=== PATIENT | male | born 1940 | race Caucasian/White ===

== ENCOUNTER 2019-09-05 12:19 | Emergency (ER) | payer MEDICARE, SELFPAY ==
[2019-09-05] VITALS (25 sets, daily range): BP systolic 129–191; BP diastolic 62–92; PULSE 46–76; RESP 18–22; TEMP 36.4–36.8; O2SAT 93–100
[2019-09-05 13:19] LABS: Abs Immature Grans 0.02 k/cumm (0.0-0.09); Absolute Basophil Count 0.02 k/cumm (0.0-0.2); Absolute Eosinophil Count 0.22 k/cumm (0.0-0.7); Absolute Lymphocyte Count 1.79 k/cumm (1.2-3.4); Absolute Monocyte Count 0.82 k/cumm (0.11-0.7); Absolute Neutrophil Count 6.03 k/cumm (1.2-6.7); Basophils % 0.2; Eosinophils % 2.5; HGB 11.8 g/dL (13.5-17.5); Immature Grans % 0.2 %; Lymphocytes % 20.1; Mean Corp. HGB Concentration 33.7 g/dL (32.0-36.0); Mean Corpuscular Hemoglobin 33.3 pg (27.0-33.0); Mean Corpuscular Volume 98.9 fL (80-95); Mean Platelet Volume 10.4 fL (8.0-11.0); Monocytes % 9.2; Neutrophils % 67.8; Platelet Count 273 x1000/uL (130-400); RBC 3.54 m/cumm (4.50-6.00)
[2019-09-05 13:35] LABS: ALT 39 U/L (16-63); AST 21 U/L (15-37); Alkaline Phosphatase 88 U/L (46-116); BUN 46 mg/dL (7-18); Bilirubin, Total 0.5 mg/dL (0.2-1.0); CREATININE 2.46 mg/dL (0.70-1.30); Calcium 8.8 mg/dL (8.5-10.1); Chloride 105 mmol/L (98-107); Estimated GFR 25.64 (mL/min/1.73m2); Glucose 146 mg/dL (74-106); Magnesium 1.3 mg/dL (1.8-2.4); Potassium 5.4 mmol/L (3.5-5.1); Sodium 139 mmol/L (136-145); Total Protein 7.7 g/dL (6.4-8.2)
[2019-09-05 13:36] LABS: Troponin I < 0.05 ng/mL (<0.06)
--- NOTE | 2019-09-05 13:36 | ED.GENADUL_ITS ---
Discharge Plan Disposition Patient Disposition: AGAINST MEDICAL ADVICE Condition: Stable Discharge Details Chief Complaint: GenMedical Clinical Impression: Acute kidney injury superimposed on CKD, Hyperkalemia, Back pain, Shortness of breath Primary Care Provider: Ryley Abebe ED Provider: Ewelina Navarro Home Meds and New Rx's Prescriptions: New amlodipine 5 mg tablet 5 mg PO DAILY Qty: 30 RF: 0 Continued atenolol 100 mg tablet 100 mg PO DAILY Qty: 90 RF: 4 sildenafil 100 mg tablet See Rx Instructions PO ONCE Qty: 7 RF: 4 multivitamin 1 EACH tablet 1 ea PO DAILY RF: 0 prednisone 20 mg tablet 20 mg PO DAILY Qty: 7 RF: 0 allopurinol 100 mg tablet 100 mg PO DAILY Qty: 90 RF: 4 triamcinolone acetonide 0.1 % cream 1 applic Topical BID PRN (Reason: pruritis) Qty: 60 RF: 0 Discontinued hydrochlorothiazide 25 mg tablet 25 mg PO DAILY Qty: 30 RF: 11 lisinopril 30 mg tablet 30 mg PO DAILY Qty: 30 RF: 12 Discharge Instructions Instructions: Acute Kidney Injury (DC), Hyperkalemia (ED), Dyspnea (ED), Back Pain (ED) Additional Instructions: We are stopping your lisinopril and hydrochlorothiazide and starting amlodipine which you should start today or tomorrow. Follow-up with your scheduled appointment with your primary care doctor on Saturday. Drink plenty of fluids and get plenty of rest. Return immediately to the emergency department if you develop any worsening or new concerning symptoms. Discharge Data Discharge Date/Time-TO BE ENTERED AT DEPARTURE: 09/05/19 17:43 Discharge Physician: Ewelina Navarro Medical Decision Making 1230 -- 78-year-old male with a history of hypertension and BPH presents for intermittent dizziness and shortness of breath since yesterday. Denies chest pain. Heart rate 40-60s. Review of previous PCP records note heart rate in the 50s. He is on atenolol. Differential diagnosis includes PE, dissection, ACS, musculoskeletal pain, pneumonia, CHF, electrolyte abnormality, arrhythmia. EKG noted a rate of 71, sinus, frequent PVCs consistent with ventricular bigeminy. T wave inversion in leads III. No acute ST elevation. 1500 -- Labs reviewed and note any significant increase in creatinine from 1.6 to 2.46. Potassium 5.4. Magnesium 1.3. Plan was for CT chest but with acute on chronic kidney injury, chest x-ray ordered which was negative for acute disease. I recommend admission for continued monitoring of creatinine and electrolytes. Patient was initially refusing admission and then agreeable. Patient was evaluated by hospitalist but is now refusing to stay. Despite our efforts, the patient has decided to leave against medical advice. He has a normal mental status and full decisional capacity. The patient understands his condition and the risks of leaving AMA, including BUT NOT LIMITED TO permanent disability, , etc., and has had an opportunity to ask questions about his medical condition. Advised that he stop his lisinopril and hydrochlorothiazide. He was given a prescription for amlodipine. He stated that he has an appointment with his primary care doctor Dr. Abebe on Saturday. He is advised to discuss with him his work-up today and for recheck of his creatinine. Usual and customary return precautions given prior to discharge. Medical Records Medical records reviewed: Yes I reviewed the patient's medical records. Imaging Data Radiologic Study: Radiologist's impression: XR PORTABLE CHEST AP CLINICAL HISTORY: back pain, r/o acute disease TECHNIQUE: COMPARISON: No exams were available for comparison FINDINGS: Portable AP chest at 1500 hours the heart is not enlarged. There is mild pulmonary interstitial prominence, nonspecific, acute versus chronic. No prior films available for comparison. No gross consolidation seen. No pneumothorax or pleural effusion seen on this frontal view. IMPRESSION: Mild pulmonary interstitial prominence, nonspecific. Findings may be acute or chronic. Appropriate follow-up studies suggested. Lab Data Lab results reviewed: Yes I reviewed the patient's lab results. Labs: Laboratory Tests Range/Units 09/05/19 09/05/19 09/05/19 12:35 12:35 12:35 WBC (4.4-10.8) k/cumm 8.90 RBC (4.50-6.00) m/cumm 3.54 L Hgb (13.5-17.5) g/dL 11.8 L Hct (40.0-50.0) % 35.0 L MCV (80-95) fL 98.9 H MCH (27.0-33.0) pg 33.3 H MCHC (32.0-36.0) g/dL 33.7 RDW (11.8-14.1) % 14.0 Plt Count (130-400) x1000/uL 273 MPV (8.0-11.0) fL 10.4 Immature Gran % % 0.2 Neutrophils % 67.8 Lymphocytes % 20.1 Monocytes % 9.2 Eosinophils % 2.5 Basophils % 0.2 Absolute Neutrophils (1.2-6.7) k/cumm 6.03 Absolute Lymphocytes (1.2-3.4) k/cumm 1.79 Absolute Monocytes (0.11-0.7) k/cumm 0.82 H Absolute Eosinophils (0.0-0.7) k/cumm 0.22 Absolute Basophils (0.0-0.2) k/cumm 0.02 Sodium (136-145) mmol/L 139 Potassium (3.5-5.1) mmol/L 5.4 H Chloride (98-107) mmol/L 105 Carbon Dioxide (21.0-32.0) mmol/L 25.0 Anion Gap (3-11) mmol/L 9.0 BUN (7-18) mg/dL 46 H Creatinine (0.70-1.30) mg/dL 2.46 H Estimated GFR/1.73 m2 (mL/min/1.73m2) 25.64 Glucose (74-106) mg/dL 146 H Calcium (8.5-10.1) mg/dL 8.8 Magnesium (1.8-2.4) mg/dL 1.3 L Total Bilirubin (0.2-1.0) mg/dL 0.5 AST (15-37) U/L 21 ALT (16-63) U/L 39 Alkaline Phosphatase (46-116) U/L 88 Troponin I (<0.06) ng/mL < 0.05 NT-Pro-B Natriuret Pep (<300) pg/mL 3309 H Total Protein (6.4-8.2) g/dL 7.7 Albumin (3.4-5.0) g/dL 4.0 Urine Color (Yellow) Urine Clarity (Clear) Urine pH (5-8) Ur Specific [place] (1.005-1.025) Urine Protein (Negative) mg/dL Urine Ketones (Negative) mg/dL Urine Blood (Negative) Urine Nitrite (Negative) Urine Bilirubin (Negative) Urine Urobilinogen (Up TO 0.2) EU/dL Ur Leukocyte Esterase (Negative) Urine RBC (0-2) HPF Urine WBC (0-5) HPF Ur Epithelial Cells (Negative) HPF Urine Crystals (Negative) HPF Urine Bacteria (Negative) HPF Urine Casts (Negative) LPF Urine Mucus (Negative) Ur Culture Indicated? Urine Glucose (Negative) mg/dL COVID-19 PCR (Negative) Nasopharyn COVID-19 PCR Ref Test Perform Site Range/Units 09/05/19 09/05/19 09/05/19 16:00 16:24 16:50 WBC (4.4-10.8) k/cumm RBC (4.50-6.00) m/cumm Hgb (13.5-17.5) g/dL Hct (40.0-50.0) % MCV (80-95) fL MCH (27.0-33.0) pg MCHC (32.0-36.0) g/dL RDW (11.8-14.1) % Plt Count (130-400) x1000/uL MPV (8.0-11.0) fL Immature Gran % % Neutrophils % Lymphocytes % Monocytes % Eosinophils % Basophils % Absolute Neutrophils (1.2-6.7) k/cumm Absolute Lymphocytes (1.2-3.4) k/cumm Absolute Monocytes (0.11-0.7) k/cumm Absolute Eosinophils (0.0-0.7) k/cumm Absolute Basophils (0.0-0.2) k/cumm Sodium (136-145) mmol/L Potassium (3.5-5.1) mmol/L Chloride (98-107) mmol/L Carbon Dioxide (21.0-32.0) mmol/L Anion Gap (3-11) mmol/L BUN (7-18) mg/dL Creatinine (0.70-1.30) mg/dL Estimated GFR/1.73 m2 (mL/min/1.73m2) Glucose (74-106) mg/dL Calcium (8.5-10.1) mg/dL Magnesium (1.8-2.4) mg/dL Total Bilirubin (0.2-1.0) mg/dL AST (15-37) U/L ALT (16-63) U/L Alkaline Phosphatase (46-116) U/L Troponin I (<0.06) ng/mL < 0.05 NT-Pro-B Natriuret Pep (<300) pg/mL Total Protein (6.4-8.2) g/dL Albumin (3.4-5.0) g/dL Urine Color (Yellow) Yellow Urine Clarity (Clear) Clear Urine pH (5-8) 6.0 Ur Specific [place] (1.005-1.025) 1.025 Urine Protein (Negative) mg/dL >=300 H Urine Ketones (Negative) mg/dL Negative Urine Blood (Negative) Trace-lysed H Urine Nitrite (Negative) Negative Urine Bilirubin (Negative) Negative Urine Urobilinogen (Up TO 0.2) EU/dL 0.2 Ur Leukocyte Esterase (Negative) Negative Urine RBC (0-2) HPF 3-5 H Urine WBC (0-5) HPF 0-2 Ur Epithelial Cells (Negative) HPF Negative Urine Crystals (Negative) HPF Negative Urine Bacteria (Negative) HPF Negative Urine Casts (Negative) LPF 3-5 hyaline Urine Mucus (Negative) Negative Ur Culture Indicated? No Urine Glucose (Negative) mg/dL Negative COVID-19 PCR (Negative) Negative Nasopharyn COVID-19 PCR Not Applicable Ref Test Perform Site [facility] lab HPI General Mode of arrival: ambulatory . Date/Time Provider Initiated Documentation: 09/05/19 12:20 . Limitations to Documentation: no limitations . Information obtained by: patient . HPI Narrative: Patient is a 78-year-old male with a history of hypertension, BPH, presents for upper back pain and shortness of breath since yesterday. Patient states the episodes have been intermittent and worse with movement or exertion. He denies any chest pain, fever, cough, abdominal pain, vomiting, dizziness or diarrhea. Patient states he mainly lives in [place] and travels the country with his . He states he does live here in [place] where he is fixing up a house and is followed by Dr. Abebe over the [place]. Related Data Home Medications Medication Instructions Recorded Confirmed multivitamin 1 ea PO DAILY 11/13/12 09/05/18 atenolol 100 mg tablet 100 mg PO DAILY #90 tab-cap 09/05/18 09/05/18 sildenafil 100 mg tablet See Rx Instructions PO ONCE #7 tab 09/05/18 09/05/18 prednisone 20 mg tablet 20 mg PO DAILY #7 tab 10/27/18 allopurinol 100 mg tablet 100 mg PO DAILY #90 tab 11/11/18 triamcinolone acetonide 0.1 % 1 applic TOPICAL BID PRN #60 gm 01/05/19 topical cream amlodipine 5 mg PO DAILY #30 tab 09/05/19 Previous Rx's Medication Instructions Recorded atenolol 100 mg tablet 100 mg PO DAILY #90 tab-cap 09/05/18 sildenafil 100 mg tablet See Rx Instructions PO ONCE #7 tab 09/05/18 prednisone 20 mg tablet 20 mg PO DAILY #7 tab 10/27/18 allopurinol 100 mg tablet 100 mg PO DAILY #90 tab 11/11/18 triamcinolone acetonide 0.1 % 1 applic TOPICAL BID PRN #60 gm 01/05/19 topical cream amlodipine 5 mg PO DAILY #30 tab 09/05/19 Allergies Allergy/AdvReac Type Severity Reaction Status Date / Time No Known Allergies Allergy Unverified 09/05/18 11:23 General Stated Complaint: GenMedical DARION: 3 Review of Systems All systems reviewed & are unremarkable except as noted in HPI and below Constitutional Constitutional: Reports as per HPI, Denies chills and Denies fever(s) Eyes Eyes: Denies blurry vision ENT Ears, Nose, Mouth, and Throat: Denies dizziness, Denies sore throat and Denies throat swelling Cardiovascular Cardiovascular: Denies chest pain and Reports dyspnea Respiratory Respiratory: Denies cough and Reports dyspnea Gastrointestinal Gastrointestinal: Denies abdominal pain, Denies diarrhea and Denies vomiting Genitourinary Genitourinary: Denies hematuria and Denies dysuria Musculoskeletal Musculoskeletal: Reports back pain and Denies numbness Integumentary/Breasts Skin/Breast: Denies lesions and Denies rash Neurologic Neurologic: Denies dizziness, Denies localized weakness and Denies numbness Allergic/Immunologic Allergic/Immunologic: Denies throat swelling [facility] Medical History (Updated 09/05/19 @ 17:34 by Ewelina Navarro DO) Benign prostatic hyperplasia (Chronic) Essential hypertension (Chronic 12/12/12) Spinal stenosis of lumbar region (Chronic 03/15/16) Unilateral inguinal hernia (Resolved) right Surgical History (Updated 09/05/18 @ 08:25 by Ryley Abebe MD) Hernia Repair, Incisional U/L History of incisional hernia repair (Resolved) Status post tonsillectomy (Resolved) Tonsillectomy (12/19/1951) Family History Mother No problems noted. Father Heart disease Maternal Grandfather No problems noted. Paternal Grandfather No problems noted. Maternal Grandmother No problems noted. Paternal Grandmother No problems noted. Social History (Updated 09/09/18 @ 11:47 by Sarabjit Mar) Smoking/Tobacco Use Status: Never Alcohol Intake: current Drug use: Never Substance use type: does not use Caregiver/Support person: No Household members: spouse Housing: other Details: RV Pets and animals: Yes Pets and animals: dog(s) Do you think of yourself as: straight/heterosexual Current gender identity: male What is your relationship status?: How often do you talk on the phone with friends or family?: decline to answer How often do you get together with friends or relatives?: decline to answer How often do you attend nondenominational or roman catholic services?: decline to answer Do you belong to any clubs or organized social groups?: no Panel score (0-1 are the most socially isolated patients): 1 What type of physical activity do you participate in: decline to answer Duration: decline to answer Frequency: decline to answer Rita/Jain: No preference Special rita needs: No Seatbelt use: always Drive intox or ride w/intox [employer] driver: No Do you feel safe at home: Yes Do you feel safe in your relationship?: Yes Exam Const General: cooperative and no acute distress HENMT Head: normal to inspection Face and sinus: normal facial exam Eyes General: appearance normal, both eyes and all related structures EOM: EOM intact bilaterally Neck Neck: normal visual inspection and No submandibular swelling Lymphatic: no lymphadenopathy noted Chest Chest: normal inspection of the chest and no tenderness Resp Effort & Inspection: normal respiratory effort and able to speak in complete sentences Auscultation: clear to auscultation bilaterally Cardio Rate: regular rate Rhythm: regular rhythm GI Inspection: normal to inspection Palpation: soft, not firm, not rigid and nontender Auscultation: normal bowel sounds Back/Spine/Pelvis Cervical Spine: No cervical muscular tenderness, No pain with cervical ROM and No cervical spinal tenderness Thoracic/Lumbar Spine: thoracic and lumbar spine normal to inspection, No thoracic spinal tenderness and No lumbar spinal tenderness Back/spine/pelvis image: 1. Location of pain. Nontender. No evidence of trauma, rash or cellulitis. No crepitus. Skin General skin exam: no rashes or lesions noted Neuro General: patient alert, patient awake and patient oriented x3 Cognition: normal cognition Speech: speech normal Motor: muscle tone normal throughout and strength 5/5 throughout Sensory Exam: no sensory deficits noted Extrem General: normal to inspection, full ROM, capillary refill normal, no calf tenderness bilaterally and no edema Other: Bilateral radial pulses intact. Psych Appearance: grossly normal Mental Status: mental status grossly normal Speech and Movement: speech and movement normal Affect: normal affect Course Vital Signs Vital signs: Vital Signs Temperature 97.7 F 09/05/19 12:30 Pulse 46 L 09/05/19 12:30 Respiratory Rate 18 09/05/19 12:30 Blood Pressure 129/66 09/05/19 12:30 Pulse Oximetry 95 09/05/19 12:30 Temperature 97.7 F 09/05/19 12:30 Temperature Source Tympanic 09/05/19 12:30 Pulse 46 L 09/05/19 12:30 Respiratory Rate 18 09/05/19 13:01 Respiratory Effort 09/05/19 13:01 Respiratory Depth Normal 09/05/19 13:01 Blood Pressure 129/66 09/05/19 12:30 Blood Pressure Position Sitting 09/05/19 12:30 Pulse Oximetry 95 09/05/19 12:30 Oxygen Delivery Method Room Air 09/05/19 12:30 Oxygen Flow Rate 0 09/05/19 12:30 Pain Level 6 09/05/19 12:30 Lab/Test Results Lab/Test Results: Laboratory Tests Range/Units 09/05/19 12:35 WBC (4.4-10.8) k/cumm 8.90 RBC (4.50-6.00) m/cumm 3.54 L Hgb (13.5-17.5) g/dL 11.8 L Hct (40.0-50.0) % 35.0 L MCV (80-95) fL 98.9 H MCH (27.0-33.0) pg 33.3 H MCHC (32.0-36.0) g/dL 33.7 RDW (11.8-14.1) % 14.0 Plt Count (130-400) x1000/uL 273 MPV (8.0-11.0) fL 10.4 Immature Gran % % 0.2 Neutrophils % 67.8 Lymphocytes % 20.1 Monocytes % 9.2 Eosinophils % 2.5 Basophils % 0.2 Absolute Neutrophils (1.2-6.7) k/cumm 6.03 Absolute Lymphocytes (1.2-3.4) k/cumm 1.79 Absolute Monocytes (0.11-0.7) k/cumm 0.82 H Absolute Eosinophils (0.0-0.7) k/cumm 0.22 Absolute Basophils (0.0-0.2) k/cumm 0.02
[2019-09-05] MEDS: ACETAMINOPHEN 1,000 MG/100 ML BTL 400 MG IVPB (14:31)
[2019-09-05] MEDS: Normal Saline 1,000 ML 1000 ML IV (14:31)
--- NOTE | 2019-09-05 14:45 | DI.RAD_ITS ---
EXAM: XR PORTABLE CHEST AP CLINICAL HISTORY: back pain, r/o acute disease TECHNIQUE: COMPARISON: No exams were available for comparison FINDINGS: Portable AP chest at 1500 hours the heart is not enlarged. There is mild pulmonary interstitial prom inence, nonspecific, acute versus chronic. No prior films available for comparison. No gross consol idation seen. No pneumothorax or pleural effusion seen on this frontal view. IMPRESSION: Mild pulmonary interstitial prominence, nonspecific. Findings may be acute or chronic. Appropriate follow-up studies suggested.
[2019-09-05] MEDS: MAGNESIUM SULFATE 2 GM/50 ML BAG IVPB (14:50)
--- NOTE | 2019-09-05 15:28 | DI.VRAD_ITS ---
PROCEDURE INFORMATION: Exam: XR Chest, 1 View Exam date and time: 09/05/2019 3:01 PM Age: 78 years old Clinical indication: Other: Back pain TECHNIQUE: Imaging protocol: XR of the chest Views: 1 view. COMPARISON: No relevant prior studies available. FINDINGS: Lungs: Unremarkable. No consolidation. Pleural space: Unremarkable. No pleural effusion. No pneumothorax. Heart/Mediastinum: Unremarkable. No cardiomegaly. Bones/joints: Unremarkable. Other findings: Overlying EKG wires IMPRESSION: No acute process Dictated and Authenticated by: Sylvia Ochoa MD. Ordering:MAURO Theodore MD
[2019-09-05] MEDS: LORazepam 2 MG/ML VIAL 0.5 MG IVP (16:31)
[2019-09-05 16:46] LABS: Troponin I < 0.05 ng/mL (<0.06)
[2019-09-05 17:00] LABS: Bilirubin Negative (Negative); Blood Trace-lysed (Negative); Clarity Clear (Clear); Glucose Negative (Negative); Ketones Negative (Negative); Leukocyte Esterase Negative (Negative); Nitrite Negative (Negative); Specific Gravity 1.025 (1.005-1.025); Urobilinogen 0.2 EU/dL (Up TO 0.2)
[2019-09-05 17:07] LABS: NT-proBNP 3309 pg/mL (<300)
[2019-09-05 17:10] LABS: Bacteria Negative HPF (Negative); C & S Indicated? No; Casts 3-5 Hyaline LPF (Negative); Crystals Negative HPF (Negative); Epithelial Cells Negative HPF (Negative); Mucus Negative (Negative); WBC 0-2 HPF (0-5)
--- NOTE | 2019-09-05 17:22 | DI.US_ITS ---
EXAM: US RENAL CLINICAL HISTORY: r/o hydronephrosis, EFRAÍN. TECHNIQUE: Mariano scale, color and spectral Doppler were used. COMPARISON: No exams were available for comparison FINDINGS: Renal size in cm: Right: 11.3 left: 10.6 Echogenicity: Mildly increased cortical echogenicity Hydronephrosis: No Cyst or mass: Multiple small bilateral cysts. The largest is at the upper pole of the right kidney m easuring 2.6 cm. There is a small cyst with debris measuring 1.3 cm near the lower pole of the right kidney. Nephrolithiasis: 6 millimeter nonobstructing stone at the lower pole of the right kidney. [address] stone at the inferior pole of the left kidney. No perinephric collections. Bladder:Normal Prevoid vol:97 cc Postvoid vol:Patient unable to void Prostate volume 26 cc. The ureteral jets were not visualized. IMPRESSION: Mildly increased renal echogenicity could indicate medical renal disease. No evidence of hydronephr osis. Bilateral nonobstructing renal calculi. Bilateral renal cysts. DATA REPOSITORY:
--- NOTE | 2019-09-05 17:22 | NUR.NOTE ---
pt states that he would like to go home and is calling his . he has been very undecided about staying Nursing Note:
[2019-09-06 07:27] LABS: COVID-19 RT-PCR UVMMC Result Negative (Negative)
== END 2019-09-05 17:43 | disposition left against medical advice (07) ==
PROVIDERS: Nurse Practitioner Family; Emergency Provider Physician Assistant; PCP Family Medicine
DX: N17.9 Acute kidney failure, unspecified (principal); Z53.29 Procedure and treatment not carried out because of patient's decision for other reasons; E87.5 Hyperkalemia; R06.02 Shortness of breath; M54.9 Dorsalgia, unspecified; N18.9 Chronic kidney disease, unspecified; I12.9 Hypertensive chronic kidney disease with stage 1 through stage 4 chronic kidney disease, or unspecified chronic kidney disease
CPT/HCPCS: 36415; 76770; 80053; 93005; 96361; 96365; 96368; 96375; 99285; U0003; 71045; 81003; 81015; 83735; 83880; 84484; 85025; 93010; J0131; J2060

== ENCOUNTER 2019-09-09 04:10 | Outpatient (CLI) | payer MEDICARE, SELFPAY ==
[2019-09-09 14:55] LABS: Anion Gap 9.9 mmol/L (3-11); BUN 43 mg/dL (7-18); CO2 25.1 mmol/L (21.0-32.0); CREATININE 2.52 mg/dL (0.70-1.30); Calcium 9.1 mg/dL (8.5-10.1); Chloride 106 mmol/L (98-107); Estimated GFR 24.94 (mL/min/1.73m2); Glucose 156 mg/dL (74-106); Potassium 5.1 mmol/L (3.5-5.1); Sodium 141 mmol/L (136-145)
== END 2019-09-09 04:30 ==
PROVIDERS: PCP Family Medicine; Visit Provider Family Medicine
DX: I10 Essential (primary) hypertension (principal)
CPT/HCPCS: 36415; 80048

== ENCOUNTER 2019-09-10 16:59 | Emergency (ER) | payer MEDICARE, SELFPAY ==
[2019-09-10 17:12] VITALS: BP 174/85; PULSE 50; RESP 22; TEMP 36.7; O2SAT 98
[2019-09-10] MEDS: Normal Saline 1,000 ML 1000 ML IV (17:54)
[2019-09-10 17:56] VITALS: RESP 22
[2019-09-10 18:00] LABS: HCT 34.8 % (40.0-50.0); HGB 12.1 g/dL (13.5-17.5); Mean Corp. HGB Concentration 34.8 g/dL (32.0-36.0); Mean Corpuscular Hemoglobin 33.9 pg (27.0-33.0); Mean Corpuscular Volume 97.5 fL (80-95); Mean Platelet Volume 10.4 fL (8.0-11.0); Platelet Count 310 x1000/uL (130-400); RBC 3.57 m/cumm (4.50-6.00); White Blood Cell Count 7.87 k/cumm (4.4-10.8)
[2019-09-10 18:08] LABS: ALT 64 U/L (16-63); Alkaline Phosphatase 101 U/L (46-116); Anion Gap 11.2 mmol/L (3-11); BUN 52 mg/dL (7-18); Bilirubin, Total 0.4 mg/dL (0.2-1.0); CO2 23.8 mmol/L (21.0-32.0); CREATININE 2.59 mg/dL (0.70-1.30); Calcium 8.8 mg/dL (8.5-10.1); Chloride 103 mmol/L (98-107); Estimated GFR 24.16 (mL/min/1.73m2); Glucose 120 mg/dL (74-106); Sodium 138 mmol/L (136-145); Total Protein 7.6 g/dL (6.4-8.2)
[2019-09-10 18:11] LABS: Magnesium 1.5 mg/dL (1.8-2.4)
[2019-09-10 18:15] LABS: Bilirubin Negative (Negative); Blood Trace-lysed (Negative); Clarity Clear (Clear); Glucose Negative (Negative); Ketones Negative (Negative); Leukocyte Esterase Negative (Negative); Nitrite Negative (Negative); Specific Gravity >= 1.030 (1.005-1.025); Urobilinogen 0.2 EU/dL (Up TO 0.2)
--- NOTE | 2019-09-10 18:19 | ED.GENADUL_ITS ---
Discharge Plan Disposition Patient Disposition: HOME Discharge Details Chief Complaint: GenMedical Clinical Impression: Chronic renal insufficiency, Hypomagnesemia Primary Care Provider: Ryley Abebe ED Provider: Ari Mirza Home Meds and New Rx's Prescriptions: Continued atenolol 100 mg tablet 100 mg PO DAILY Qty: 90 RF: 4 sildenafil 100 mg tablet See Rx Instructions PO ONCE Qty: 7 RF: 4 multivitamin 1 EACH tablet 1 ea PO DAILY RF: 0 prednisone 20 mg tablet 20 mg PO DAILY Qty: 7 RF: 0 allopurinol 100 mg tablet 100 mg PO DAILY Qty: 90 RF: 4 triamcinolone acetonide 0.1 % cream 1 applic Topical BID PRN (Reason: pruritis) Qty: 60 RF: 0 amlodipine 5 mg tablet 5 mg PO DAILY Qty: 30 RF: 0 Discharge Instructions Instructions: Chronic Kidney Disease (ED), Hypomagnesemia (ED) Additional Instructions: At this time your evaluation and laboratory values do not reveal any obvious emergent process. I have personally spoken with Dr. Abebe, we discussed your case, and he is comfortable with you being discharged from the ER. I would like you to contact his office tomorrow for prompt outpatient reevaluation. Likely outpatient nephrology consultation is indicated for your progressive renal disease. Please watch for new or worsening symptoms and return to the ER for any concerns Medical Decision Making 78-year-old gentleman with history of hypertension, renal insufficiency, presents today after being directed here by his primary care provider. He is currently asymptomatic. Patient did sign out from the ER 4 days ago AMA with back pain and shortness of breath. He denies any back pain, chest pain, shortness of breath now. Vital signs reveal that he is mildly hypertensive however it appears as though he did have his medications changed just 4 days ago and it may take some time to normalize. Although he is mildly hypertensive, he is asymptomatic. EKG was obtained per protocol prior to my evaluation. I will give 1 L IV fluid, obtain CBC, CMP, urinalysis. His heart rate is in the 60s upon my evaluation. Once his labs have been assessed I will discuss the case with our hospitalist team to discuss possible admission. White blood cell count 7.87, hemoglobin 12.1 hematocrit 34.8, sodium 138, potassium 5.0, BUN 52 creatinine 2.59, GFR 24.16. Renal function appears stable over the past 3 blood draws, most recent comparison is 4 years ago, this certainly makes the situation challenging. His magnesium was 1.5. We will give 1 g IV. Urinalysis is yellow, clear, 3-5 red cells, 5-10 white cells, negative epithelial cells, negative bacteria, negative nitrate. Patient denies abdominal pain, dysuria, he is asymptomatic. Culture pending, will not treat with antibiotics now. I did discuss the case with Dr. Wang, who was actually going to admit him 4 days ago when he signed out AMA. He does know the case. He reports that the renal insufficiency appears to be more chronic in nature, patient did have a ultrasound during his previous visit. Given his renal function has not decreased severely over the past 4 days, he is not sure how inpatient therapy would be beneficial at this time. I will discuss the case with Dr. Abebe to confirm disposition. I was able to speak with Dr. Abebe, he is relieved that the patient's renal function has not gotten significantly worse, would agree that the patient can likely be safely discharged here from the ER and he is happy to follow him as an outpatient. He will also get the patient outpatient nephrology consultation for his worsening renal function. I was able to discuss the disposition on the phone with the patient's as well as in person with the patient. Patient and family have no additional questions or concerns and are comfortable with discharge. Medical Records Medical records reviewed: Yes I reviewed the patient's medical records. Lab Data Lab results reviewed: Yes I reviewed the patient's lab results. Lab results narrative: 09/10/19 17:23 Urine - Reflex from Ua Urine Culture - Pending Laboratory Tests Range/Units 09/10/19 09/10/19 09/10/19 17:00 17:00 17:00 WBC (4.4-10.8) k/cumm 7.87 RBC (4.50-6.00) m/cumm 3.57 L Hgb (13.5-17.5) g/dL 12.1 L Hct (40.0-50.0) % 34.8 L MCV (80-95) fL 97.5 H MCH (27.0-33.0) pg 33.9 H MCHC (32.0-36.0) g/dL 34.8 RDW (11.8-14.1) % 14.0 Plt Count (130-400) x1000/uL 310 MPV (8.0-11.0) fL 10.4 Sodium (136-145) mmol/L 138 Potassium (3.5-5.1) mmol/L 5.0 Chloride (98-107) mmol/L 103 Carbon Dioxide (21.0-32.0) mmol/L 23.8 Anion Gap (3-11) mmol/L 11.2 H BUN (7-18) mg/dL 52 H D Creatinine (0.70-1.30) mg/dL 2.59 H Estimated GFR/1.73 m2 (mL/min/1.73m2) 24.16 Glucose (74-106) mg/dL 120 H Calcium (8.5-10.1) mg/dL 8.8 Magnesium (1.8-2.4) mg/dL 1.5 L Total Bilirubin (0.2-1.0) mg/dL 0.4 AST (15-37) U/L 37 ALT (16-63) U/L 64 H Alkaline Phosphatase (46-116) U/L 101 Total Protein (6.4-8.2) g/dL 7.6 Albumin (3.4-5.0) g/dL 4.0 Urine Color (Yellow) Urine Clarity (Clear) Urine pH (5-8) Ur Specific [place] (1.005-1.025) Urine Protein (Negative) mg/dL Urine Ketones (Negative) mg/dL Urine Blood (Negative) Urine Nitrite (Negative) Urine Bilirubin (Negative) Urine Urobilinogen (Up TO 0.2) EU/dL Ur Leukocyte Esterase (Negative) Urine RBC (0-2) HPF Urine WBC (0-5) HPF Ur Epithelial Cells (Negative) HPF Urine Crystals (Negative) HPF Urine Bacteria (Negative) HPF Urine Casts (Negative) LPF Urine Mucus (Negative) Urine Other (Negative) Ur Culture Indicated? Urine Glucose (Negative) mg/dL Range/Units 09/10/19 17:23 WBC (4.4-10.8) k/cumm RBC (4.50-6.00) m/cumm Hgb (13.5-17.5) g/dL Hct (40.0-50.0) % MCV (80-95) fL MCH (27.0-33.0) pg MCHC (32.0-36.0) g/dL RDW (11.8-14.1) % Plt Count (130-400) x1000/uL MPV (8.0-11.0) fL Sodium (136-145) mmol/L Potassium (3.5-5.1) mmol/L Chloride (98-107) mmol/L Carbon Dioxide (21.0-32.0) mmol/L Anion Gap (3-11) mmol/L BUN (7-18) mg/dL Creatinine (0.70-1.30) mg/dL Estimated GFR/1.73 m2 (mL/min/1.73m2) Glucose (74-106) mg/dL Calcium (8.5-10.1) mg/dL Magnesium (1.8-2.4) mg/dL Total Bilirubin (0.2-1.0) mg/dL AST (15-37) U/L ALT (16-63) U/L Alkaline Phosphatase (46-116) U/L Total Protein (6.4-8.2) g/dL Albumin (3.4-5.0) g/dL Urine Color (Yellow) Yellow Urine Clarity (Clear) Clear Urine pH (5-8) 6.0 Ur Specific [place] (1.005-1.025) >= 1.030 H Urine Protein (Negative) mg/dL >=300 H Urine Ketones (Negative) mg/dL Negative Urine Blood (Negative) Trace-lysed H Urine Nitrite (Negative) Negative Urine Bilirubin (Negative) Negative Urine Urobilinogen (Up TO 0.2) EU/dL 0.2 Ur Leukocyte Esterase (Negative) Negative Urine RBC (0-2) HPF 3-5 H Urine WBC (0-5) HPF 5-10 Ur Epithelial Cells (Negative) HPF Negative Urine Crystals (Negative) HPF Negative Urine Bacteria (Negative) HPF Negative Urine Casts (Negative) LPF Negative Urine Mucus (Negative) Negative Urine Other (Negative) Negative Ur Culture Indicated? Yes Urine Glucose (Negative) mg/dL Negative ECG Data Attestation: I personally reviewed and interpreted this ECG (s) as follows: Interpretation: EKG performed at 1727 reviewed and interpreted with Dr. Nieto. Sinus bradycardia, ventricular rate of 59. First-degree AV block. Nonspecific ST depression in nonspecific T wave abnormalities. Frequent ectopic ventricular beats HPI General Mode of arrival: ambulatory . Date/Time Provider Initiated Documentation: 09/10/19 17:17 . Limitations to Documentation: no limitations . Information obtained by: patient . HPI Narrative: This is a 78-year-old gentleman with history of renal insufficiency, hyperkalemia, hypertension, who presents to the ER after having had shortness of breath and back pain 4 days ago and left the ER AMA. Subsequently he was seen by Dr. Abebe his primary care provider 2 days ago, had routine blood drawn, and call today to return to the ER for likely admission given his blood work. Patient is currently asymptomatic. He is a rather vague and poor historian. Patient currently has no concerns or complaints. He reports that the back pain and shortness of breath that he was having 4 days ago has completely resolved. He denies any recent illness or trauma. Denies headache, neck pain, chest pain, shortness of breath and abdominal pain, nausea, vomiting, numbness, tingling, weakness. Today after speaking with his , he is agreeable to admission if that is what is required. I was able to speak with the patient's on the phone, she reports that he has had long-term progression of memory loss although this is nonacute. This was brought to the attention of Dr. Abebe as well. She also reports that while checking his blood pressure she has noticed his heart rate to be low occasionally in the 40s. Related Data Home Medications Medication Instructions Recorded Confirmed multivitamin 1 ea PO DAILY 11/13/12 09/10/19 atenolol 100 mg tablet 100 mg PO DAILY #90 tab-cap 09/05/18 09/10/19 sildenafil 100 mg tablet See Rx Instructions PO ONCE #7 tab 09/05/18 09/10/19 prednisone 20 mg tablet 20 mg PO DAILY #7 tab 10/27/18 09/10/19 allopurinol 100 mg tablet 100 mg PO DAILY #90 tab 11/11/18 09/10/19 triamcinolone acetonide 0.1 % 1 applic TOPICAL BID PRN #60 gm 01/05/19 09/10/19 topical cream amlodipine 5 mg PO DAILY #30 tab 09/05/19 09/10/19 Previous Rx's Medication Instructions Recorded atenolol 100 mg tablet 100 mg PO DAILY #90 tab-cap 06/14/19 sildenafil 100 mg tablet See Rx Instructions PO ONCE #7 tab 09/05/18 prednisone 20 mg tablet 20 mg PO DAILY #7 tab 10/27/18 allopurinol 100 mg tablet 100 mg PO DAILY #90 tab 11/11/18 triamcinolone acetonide 0.1 % 1 applic TOPICAL BID PRN #60 gm 01/05/19 topical cream amlodipine 5 mg PO DAILY #30 tab 09/05/19 Allergies Allergy/AdvReac Type Severity Reaction Status Date / Time No Known Allergies Allergy Unverified 09/10/19 17:20 General Stated Complaint: GenMedical DARION: 2 Review of Systems Constitutional Constitutional: Denies fatigue, Denies fever(s) and Denies weakness Eyes Eyes: Denies change in vision ENT Ears, Nose, Mouth, and Throat: Denies sore throat Cardiovascular Cardiovascular: Denies chest pain and Denies dyspnea Respiratory Respiratory: Denies cough and Denies dyspnea Gastrointestinal Gastrointestinal: Denies abdominal pain, Denies nausea and Denies vomiting Genitourinary Genitourinary: Denies dysuria Musculoskeletal Musculoskeletal: Denies back pain, Denies myalgias, Denies numbness and Denies tingling Integumentary/Breasts Skin/Breast: Denies rash Neurologic Neurologic: Denies numbness, Denies tingling and Denies weakness Endocrine Endocrine: Denies fatigue Hematologic/Lymphatic Hematologic/Lymphatic: Denies easy bleeding and Denies easy bruising [facility] Medical History Benign prostatic hyperplasia (Chronic) Essential hypertension (Chronic 12/12/12) Spinal stenosis of lumbar region (Chronic 03/15/16) Unilateral inguinal hernia (Resolved) right Surgical History Hernia Repair, Incisional U/L History of incisional hernia repair (Resolved) Status post tonsillectomy (Resolved) Tonsillectomy (12/19/1951) Family History Mother No problems noted. Father Heart disease Maternal Grandfather No problems noted. Paternal Grandfather No problems noted. Maternal Grandmother No problems noted. Paternal Grandmother No problems noted. Social History (Reviewed 09/10/19 @ 20:17 by CATHI Higginbotham Smoking/Tobacco Use Status: Never Alcohol Intake: current Alcohol Intake frequency: 0-2 drinks per day Alcohol type: hard liquor Drug use: Never Substance use type: does not use Caregiver/Support person: No Household members: spouse Housing: other Details: RV Pets and animals: Yes Pets and animals: dog(s) Do you think of yourself as: straight/heterosexual Current gender identity: male What is your relationship status?: How often do you talk on the phone with friends or family?: decline to answer How often do you get together with friends or relatives?: decline to answer How often do you attend oriental orthodox or jew services?: decline to answer Do you belong to any clubs or organized social groups?: no Panel score (0-1 are the most socially isolated patients): 1 What type of physical activity do you participate in: decline to answer Duration: decline to answer Frequency: decline to answer Rita/Caodaism: No preference Special rita needs: No Seatbelt use: always Drive intox or ride w/intox electric screw driver operator: No Do you feel safe at home: Yes Do you feel safe in your relationship?: Yes Exam Const General: cooperative, healthy appearing, comfortable and no acute distress Orientation: alert, awake and oriented x3 HENMT Head: normal to inspection, normocephalic and atraumatic Mouth: moist mucous membranes Throat: posterior oropharynx normal Eyes General: appearance normal, both eyes and all related structures Alignment and Position: alignment normal Periorbital: periorbital findings normal Eyelids: eyelids normal Conjunctivae: conjunctivae normal Sclera: sclerae normal Cornea: corneas normal Pupils: PERRL EOM: EOM intact bilaterally Direct ophthalmoscopy: normal light reflex Neck Neck: normal visual inspection, full ROM, no lymphadenopathy, no meningeal signs, trachea midline, supple and nontender Resp Effort & Inspection: normal respiratory effort and able to speak in complete sentences Auscultation: clear to auscultation bilaterally Cardio Rate: regular rate Rhythm: regular rhythm GI Palpation: soft and nontender Auscultation: normal bowel sounds Back/Spine/Pelvis Back: No back tenderness Skin General skin exam: no rashes or lesions noted Neuro General: patient alert, patient awake, patient oriented x3, moves all extremities and no focal motor deficits Cranial Nerves: CN's II-XI intact bilaterally Cognition: normal cognition Speech: speech normal Gait: normal gait Motor: muscle tone normal throughout and strength 5/5 throughout Sensory Exam: no sensory deficits noted Extrem General: normal to inspection, full ROM, capillary refill normal, no pedal edema, no calf tenderness and normal gait Psych Appearance: grossly normal Mental Status: mental status grossly normal Course Vital Signs Vital signs: Vital Signs Temperature 36.7 C 09/10/19 17:12 Pulse 50 L 09/10/19 17:12 Respiratory Rate 22 09/10/19 17:12 Blood Pressure 174/85 H 09/10/19 17:12 Pulse Oximetry 98 09/10/19 17:12 Temperature 36.7 C 09/10/19 17:12 Temperature Source Temporal Artery Scan 09/10/19 17:12 Pulse 50 L 09/10/19 17:12 Respiratory Rate 22 09/10/19 17:56 Respiratory Effort Non-Labored 09/10/19 17:56 Respiratory Depth Normal 09/10/19 17:56 Respiratory Pattern Normal 09/10/19 17:56 Blood Pressure 174/85 H 09/10/19 17:12 Blood Pressure Position Right Lateral 09/10/19 17:12 Pulse Oximetry 98 09/10/19 17:12 Oxygen Delivery Method Room Air 09/10/19 17:12 Oxygen Flow Rate 0 09/10/19 17:12 Pain Level 4 09/10/19 17:12 Lab/Test Results Lab/Test Results: Laboratory Tests Range/Units 09/10/19 09/10/19 09/10/19 17:00 17:00 17:00 WBC (4.4-10.8) k/cumm 7.87 RBC (4.50-6.00) m/cumm 3.57 L Hgb (13.5-17.5) g/dL 12.1 L Hct (40.0-50.0) % 34.8 L MCV (80-95) fL 97.5 H MCH (27.0-33.0) pg 33.9 H MCHC (32.0-36.0) g/dL 34.8 RDW (11.8-14.1) % 14.0 Plt Count (130-400) x1000/uL 310 MPV (8.0-11.0) fL 10.4 Sodium (136-145) mmol/L 138 Potassium (3.5-5.1) mmol/L 5.0 Chloride (98-107) mmol/L 103 Carbon Dioxide (21.0-32.0) mmol/L 23.8 Anion Gap (3-11) mmol/L 11.2 H BUN (7-18) mg/dL 52 H D Creatinine (0.70-1.30) mg/dL 2.59 H Estimated GFR/1.73 m2 (mL/min/1.73m2) 24.16 Glucose (74-106) mg/dL 120 H Calcium (8.5-10.1) mg/dL 8.8 Magnesium (1.8-2.4) mg/dL 1.5 L Total Bilirubin (0.2-1.0) mg/dL 0.4 ALT (16-63) U/L 64 H Alkaline Phosphatase (46-116) U/L 101 Total Protein (6.4-8.2) g/dL 7.6 Albumin (3.4-5.0) g/dL 4.0
[2019-09-10 18:36] LABS: Epithelial Cells Negative HPF (Negative)
[2019-09-10 18:37] LABS: Bacteria Negative HPF (Negative); C & S Indicated? Yes; Casts Negative LPF (Negative); Crystals Negative HPF (Negative); Mucus Negative (Negative); Other Cells Negative (Negative)
[2019-09-10 18:39] LABS: AST 37 U/L (15-37)
[2019-09-10] MEDS: MAGNESIUM SULFATE 1 GM/100 ML BAG IVPB (19:07)
--- NOTE | 2019-09-10 19:13 | NUR.NOTE ---
Assumed care of pt. Report from Cherie. Pt lying in bed in NAD> ED visit this weekend for chest and shoulder pain while doing work. PCP called roxy dn told him to come to ED after repeat bloodwork. Denies pain, no further chest pain. Feeling well otherwise. Plan for Mg infusion, then DC home with nephrology f/u.
--- NOTE | 2019-09-10 19:51 | NUR.NOTE ---
Wound undressed, SAIDA Mirza in to eval wound. NS wet to dry dsg reapplied.
[2019-09-10 20:04] VITALS: BP 167/91; PULSE 60; RESP 20; TEMP 36.7; O2SAT 96
== END 2019-09-10 20:15 | disposition home or self-care (01) ==
PROVIDERS: Emergency Provider Physician Assistant; PCP Family Medicine
DX: N18.9 Chronic kidney disease, unspecified (principal); E83.42 Hypomagnesemia; I12.9 Hypertensive chronic kidney disease with stage 1 through stage 4 chronic kidney disease, or unspecified chronic kidney disease
CPT/HCPCS: 36415; 80053; 85027; 93005; 96361; 96365; 99284; 81003; 81015; 83735; 87086; 93010; J3475

== ENCOUNTER 2019-12-08 09:28 | Outpatient (CLI) | payer MEDICARE, SELFPAY ==
[2019-12-08 13:04] LABS: Anion Gap 8.5 mmol/L (3-11); BUN 36 mg/dL (7-18); CO2 26.5 mmol/L (21.0-32.0); CREATININE 2.06 mg/dL (0.70-1.30); Calcium 9.3 mg/dL (8.5-10.1); Chloride 100 mmol/L (98-107); Estimated GFR 31.39 (mL/min/1.73m2); Glucose 148 mg/dL (74-106); Magnesium 1.6 mg/dL (1.8-2.4); Potassium 4.7 mmol/L (3.5-5.1); Sodium 135 mmol/L (136-145)
== END 2019-12-08 09:48 ==
PROVIDERS: PCP Family Medicine; Visit Provider Family Medicine
DX: I10 Essential (primary) hypertension (principal); N18.2 Chronic kidney disease, stage 2 (mild)
CPT/HCPCS: 36415; 80048; 83735; 84550

== ENCOUNTER 2020-10-25 03:43 | Outpatient (CLI) | payer MEDICARE, SELFPAY ==
[2020-10-25 12:41] LABS: Hemoglobin A1C 6.1 % (<5.7)
[2020-10-25 12:46] LABS: Anion Gap 9.8 mmol/L (3-11); BUN 40 mg/dL (7-18); CO2 27.2 mmol/L (21.0-32.0); CREATININE 2.2 mg/dL (0.70-1.30); Calcium 9.2 mg/dL (8.5-10.1); Calculated LDL 124 mg/dL (<100); Chloride 103 mmol/L (98-107); Cholesterol 221 mg/dL (<200); Estimated GFR 29.02 (mL/min/1.73m2); Glucose 119 mg/dL (74-106); HDL Cholesterol 47 mg/dL (40-60); Potassium 4.6 mmol/L (3.5-5.1); Sodium 140 mmol/L (136-145); Triglyceride 254 mg/dL (<150)
== END 2020-10-25 03:44 | disposition home or self-care (01) ==
LOC: LOS 03:44
PROVIDERS: PCP Family Medicine; Visit Provider Family Medicine
DX: E78.5 Hyperlipidemia, unspecified (principal); R73.9 Hyperglycemia, unspecified; N18.2 Chronic kidney disease, stage 2 (mild)
CPT/HCPCS: 36415; 80048; 80061; 83036

== ENCOUNTER 2021-09-19 08:35 | Outpatient (CLI) | payer MEDICARE, SELFPAY ==
[2021-09-19 13:21] LABS: Calculated LDL 130 mg/dL (<100); Cholesterol 228 mg/dL (<200); Estimated GFR 15.93 (mL/min/1.73m2); HDL Cholesterol 40 mg/dL (40-60); Magnesium 1.5 mg/dL (1.8-2.4); Potassium 5.5 mmol/L (3.5-5.1); Triglyceride 290 mg/dL (<150)
[2021-09-19 13:27] LABS: Hemoglobin A1C 6.4 % (<5.7)
[2021-09-19 13:46] LABS: CREATININE 3.7 mg/dL (0.70-1.30)
[2021-09-19 17:05] LABS: BUN 64 mg/dL (7-18)
[2021-09-20 14:53] LABS: Lab Add On Test DONE
== END 2021-09-19 08:36 | disposition home or self-care (01) ==
LOC: LOS 08:35
PROVIDERS: PCP Family Medicine; Visit Provider Family Medicine
DX: E78.5 Hyperlipidemia, unspecified (principal); I10 Essential (primary) hypertension; R73.9 Hyperglycemia, unspecified; E83.42 Hypomagnesemia; N18.2 Chronic kidney disease, stage 2 (mild)
CPT/HCPCS: 36415; 80061; 84520; 82565; 83036; 83735; 84132

== ENCOUNTER 2021-09-21 15:05 | Outpatient (REF) | payer MEDICARE, SELFPAY ==
[2021-09-20 22:28] LABS: Bacteria Rare HPF (Negative); C & S Indicated? No; Crystals Negative HPF (Negative); Epithelial Cells Negative HPF (Negative); Mucus Negative (Negative); RBC 0-2 HPF (0-2); WBC 0-2 HPF (0-5)
== END 2021-09-21 15:06 | disposition home or self-care (01) ==
LOC: LBN 15:05
PROVIDERS: PCP Family Medicine; Visit Provider Family Medicine
DX: R30.0 Dysuria (principal)
CPT/HCPCS: 80048; 81015

== ENCOUNTER 2021-10-10 01:24 | Outpatient (CLI) | payer MEDICARE, SELFPAY ==
[2021-10-10 13:05] LABS: Anion Gap 11.1 mmol/L (3-11); BUN 53 mg/dL (7-18); CO2 21.9 mmol/L (21.0-32.0); CREATININE 2.7 mg/dL (0.70-1.30); Calcium 9.3 mg/dL (8.5-10.1); Chloride 106 mmol/L (98-107); Estimated GFR 22.91 (mL/min/1.73m2); Glucose 131 mg/dL (74-106); Sodium 139 mmol/L (136-145)
[2021-10-10 13:09] LABS: Potassium 6.2 mmol/L (3.5-5.1)
== END 2021-10-10 01:25 | disposition home or self-care (01) ==
LOC: LOS 01:24
PROVIDERS: PCP Family Medicine; Visit Provider Family Medicine
DX: E87.1 Hypo-osmolality and hyponatremia (principal)
CPT/HCPCS: 36415; 80048

== ENCOUNTER 2021-10-13 02:12 | Outpatient (CLI) | payer MEDICARE, SELFPAY ==
[2021-10-13 12:55] LABS: Potassium 5.2 mmol/L (3.5-5.1)
== END 2021-10-13 02:13 | disposition home or self-care (01) ==
LOC: LOS 02:12
PROVIDERS: PCP Family Medicine; Visit Provider Family Medicine
DX: E87.5 Hyperkalemia (principal)
CPT/HCPCS: 36415; 84132

== ENCOUNTER 2021-10-24 03:23 | Outpatient (CLI) | payer MEDICARE, SELFPAY ==
[2021-10-24 12:58] LABS: Potassium 4.8 mmol/L (3.5-5.1)
== END 2021-10-24 03:24 | disposition home or self-care (01) ==
LOC: LOS 03:24
PROVIDERS: PCP Family Medicine; Visit Provider Family Medicine
DX: I10 Essential (primary) hypertension (principal)
CPT/HCPCS: 36415; 84132

== ENCOUNTER 2022-09-20 09:40 | Outpatient (CLI) | payer MEDICARE, SELFPAY ==
[2022-09-20 11:24] LABS: Hemoglobin A1C 5.5 % (<5.7)
[2022-09-20 11:32] LABS: Anion Gap 11.1 mmol/L (3-11); BUN 32 mg/dL (7-18); CO2 21.9 mmol/L (21.0-32.0); CREATININE 2.4 mg/dL (0.70-1.30); Calcium 8.9 mg/dL (8.5-10.1); Calculated LDL 113 mg/dL (<100); Chloride 106 mmol/L (98-107); Cholesterol 213 mg/dL (<200); Estimated GFR 26.61 (mL/min/1.73m2); Glucose 114 mg/dL (74-106); HDL Cholesterol 40 mg/dL (40-60); Magnesium 1.3 mg/dL (1.8-2.4); Potassium 5.6 mmol/L (3.5-5.1); Sodium 139 mmol/L (136-145); Triglyceride 304 mg/dL (<150)
== END 2022-09-20 09:41 | disposition home or self-care (01) ==
LOC: LOS 09:40
PROVIDERS: PCP Family Medicine; Referring Provider Family Medicine; Visit Provider Family Medicine
DX: E83.42 Hypomagnesemia (principal); E87.1 Hypo-osmolality and hyponatremia; E11.51 Type 2 diabetes mellitus with diabetic peripheral angiopathy without gangrene; I70.209 Unspecified atherosclerosis of native arteries of extremities, unspecified extremity; M10.9 Gout, unspecified; E78.5 Hyperlipidemia, unspecified
CPT/HCPCS: 36415; 80048; 80061; 83036; 83735; 84550

== ENCOUNTER 2022-11-27 02:31 | Outpatient (CLI) | payer MEDICARE, SELFPAY ==
[2022-11-27 13:13] LABS: Potassium 5.1 mmol/L (3.5-5.1)
== END 2022-11-27 02:32 | disposition home or self-care (01) ==
LOC: LOS 02:31
PROVIDERS: PCP Family Medicine; Visit Provider Family Medicine
DX: E87.5 Hyperkalemia (principal); E11.9 Type 2 diabetes mellitus without complications; E78.5 Hyperlipidemia, unspecified; I10 Essential (primary) hypertension
CPT/HCPCS: 36415; 84132